=== PATIENT | female | born 2000 | race Caucasian/White ===

== ENCOUNTER → 2022-03-20 | Outpatient (CLI) | payer BC, OTHER ==
[2022-03-20 17:44] LABS: INR 1.04; PROTHROMBIN TIME 13.8 SECONDS (12.5-14.5)
[2022-03-20 17:45] LABS: PARTIAL THROMBOPLASTIN TIME 27.6 SECONDS (24.8-34.2)
[2022-03-20 18:32] LABS: GLUCOSE, FASTING 97 MG/DL (60-100)
[2022-03-20 18:33] LABS: TRIGLYCERIDES LEVEL 30 MG/DL (<150)
[2022-03-20 18:34] LABS: CHOLESTEROL LEVEL 125 MG/DL (<200)
[2022-03-20 18:35] LABS: CHOLESTEROL RISK RATIO 2.25 (<5); HDL CHOLESTEROL 55.5 MG/DL (>40); LDL CHOLESTEROL 63.5 MG/DL (<100); NON-HDL-C 70 MG/DL; TOTAL PROTEIN 7.4 GM/DL (6.4-8.2)
[2022-03-20 18:56] LABS: HEMOGLOBIN A1c 4.6 % (4.0-6.0)
[2022-03-22 17:08] LABS: ANTINUCLEAR ANTIBODIES DIRECT Negative (Negative)
[2022-03-24 06:04] LABS: ALBUMIN 4.26 GM/DL (3.29-5.55); ALBUMIN % 57.6 % (55.8-66.1); ALPHA-1-GLOBULIN % 4.5 % (2.9-4.9); ALPHA-1-GLOBULINS 0.33 GM/DL (0.17-0.41); ALPHA-2-GLOBULINS 0.74 GM/DL (0.42-0.99); BETA-1-GLOBULINS 0.38 GM/DL (0.28-0.60); BETA-1-GLOBULINS % 5.2 % (4.7-7.2); BETA-2-GLOBULINS 0.37 GM/DL (0.19-0.55); GAMMA GLOBULIN % 17.7 % (11.1-18.8); GAMMA GLOBULINS 1.31 GM/DL (0.65-1.58)
== END ==
LOC: M LAB 16:30
PROVIDERS: ATTEND Optometrist
DX: H34.8122 Central retinal vein occlusion, left eye, stable (principal)

== ENCOUNTER → 2022-03-21 | Outpatient (CLI) | payer BC, OTHER ==
[2022-03-21 17:53] LABS: BASO % 0.4 % (0.0-1.0); EOS # 0.1 10^3/uL (0.0-0.5); EOS % 1.2 % (0.0-3.0); HEMOGLOBIN 13.1 g/dl (12.0-15.5); LYMPH # 2.5 10^3/uL (1.5-5.0); LYMPH % 30.2 % (24.0-44.0); MEAN CORPUSCULAR HEMOGLOBIN 32.1 pg (27.0-33.0); MEAN CORPUSCULAR HGB CONC 34.5 g/dl (32.0-36.5); MEAN CORPUSCULAR VOLUME 93.1 fl (80.0-96.0); MONO # 0.6 10^3/uL (0.0-0.8); MONO % 7.7 % (2.0-8.0); NEUTROPHILS # 4.9 10^3/uL (1.5-8.5); NEUTROPHILS % 60.1 % (36.0-66.0); PLATELET COUNT, AUTOMATED 250 10^3/uL (150-450); RED BLOOD COUNT 4.08 10^6/uL (4.00-5.40); WHITE BLOOD COUNT 8.2 10^3/uL (4.0-10.0)
== END ==
LOC: M LAB 16:08
PROVIDERS: ATTEND Ophthalmology Retina Specialist
DX: H34.8120 Central retinal vein occlusion, left eye, with macular edema (principal)

== ENCOUNTER → 2024-10-30 | Outpatient (CLI) | payer BC ==
[~2024-10-30] MED LIST: IBUP200C33 PO; MAGN100T PO
== END ==
LOC: M EKG 09:20
PROVIDERS: ATTEND Internal Medicine Cardiovascular Disease
DX: R94.31 Abnormal electrocardiogram [ECG] [EKG] (principal); Z53.9 Procedure and treatment not carried out, unspecified reason

== ENCOUNTER → 2025-01-21 | Outpatient (CLI) | payer BC | LOC: M CARPUL 16:15 | PROVIDERS: ATTEND Internal Medicine Cardiovascular Disease | DX: R94.31 Abnormal electrocardiogram [ECG] [EKG] (principal) ==